=== PATIENT | male | born 1955 | race Caucasian/White ===

== ENCOUNTER 2018-01-26 20:04 | Emergency (ER) | payer OTHER ==
--- NOTE | 2018-01-27 00:01 | EDM.PDOC ---
ED HPI GENERAL MEDICAL PROBLEM - General Chief Complaint: Neuro Symptoms/Deficits Stated Complaint: DIZZY VOMITING Time Seen by Provider: 01/26/18 23:55 Source of Information: Reports: Patient, Family (), RN Notes Reviewed History Limitations: Reports: No Limitations - History of Present Illness INITIAL COMMENTS - FREE TEXT/NARRATIVE: The patient states that he developed lightheadedness about 5 minutes after he got into a hot tub around 18:00 MDT last night, 01/25/2018. He went inside and vomited, followed by dry heaves, for about 1.5 hours. He went to bed , but when he woke, he still had nausea with dry heaves. This morning, his symptoms were still present. The patient and his are vacationing from [place], [place], and the patient was in a van for about 10 hours today, driving from [place], [place]. His symptoms are made worse if he is upright. He feels okay if he is supine, but when moving in the van, he had to keep his eyes closed. He is ataxic when he walks, although denies any focal weakness. He states that he developed a bilateral frontal headache about one hour ago. No prior similar symptoms. Lower Abdominal Pain Score (Numeric/FACES): 6 - Related Data Allergies Allergy/AdvReac Type Severity Reaction Status Date / Time No Known Allergies Allergy Verified 01/26/18 21:07 Home Meds: Home Meds . [No Known Home Meds] 01/26/18 [History] Past Medical History - Past Surgical History HEENT Surgical History: Reports: Oral Surgery (wisdom teeth extraction) Social & Family History - Family History Family Medical History: Noncontributory - Tobacco Use Smoking Status *Q: Never Smoker - Alcohol Use Alcohol Use History: Yes Alcohol Use Frequency: Weekly - Recreational Drug Use Recreational Drug Use: No - Living Situation & Occupation Living situation: Reports: , with Spouse Occupation: Retired ED ROS GENERAL - Review of Systems Review Of Systems: ROS reveals no pertinent complaints other than HPI. ED EXAM, DIZZINESS - Physical Exam Exam: See Below Exam Limited By: No Limitations General Appearance: Alert, WD/WN, No Apparent Distress Eye Exam: Bilateral Eye: EOMI, Normal Inspection, PERRL Ears: Normal External Exam, Hearing Grossly Normal Nose: Normal Inspection, No Blood Throat/Mouth: Normal Inspection, Normal Lips, Normal Voice, No Airway Compromise Head Exam: Atraumatic, Normocephalic Neck: Normal Inspection, Full Range of Motion Respiratory/Chest: No Respiratory Distress, Lungs Clear, Normal Breath Sounds, No Accessory Muscle Use Cardiovascular: Normal Peripheral Pulses, Regular Rate, Rhythm, No Gallop, No JVD, No Murmur, No Rub GI/Abdominal: Normal Bowel Sounds, Soft, Non-Tender, No Organomegaly, No Distention, No Abnormal Bruit, No Mass (Male) Exam: Deferred Rectal (Males) Exam: Deferred Neurological: Alert, Normal Dorsiflexion, CN II-XII Intact, Normal Plantar Flexion, No Motor/Sensory Deficits, Oriented x 3, Other (Cerebellar exam normal) Back Exam: Normal Inspection, Full Range of Motion, NT Extremities: Normal Inspection, Normal Range of Motion, No Pedal Edema, Normal Capillary Refill Psychiatric: Normal Affect Skin Exam: Warm, Dry, Intact, Normal Color, No Rash EKG INTERPRETATION EKG Date: 01/26/18 Time: 23:44 Rhythm: NSR Rate (Beats/Min): 75 [place]: Normal P-Wave: Present QRS: Normal ST-T: Normal QT: Normal Comparison: NA - No Prior EKG Course - Vital Signs Last Recorded V/S: Last Vital Signs Temp 37.4 C 01/26/18 21:01 Pulse 68 01/26/18 21:01 Resp 16 01/26/18 21:01 BP 128/75 01/26/18 21:01 Pulse Ox 100 01/26/18 21:01 - Orders/Labs/Meds Orders: Active Orders 24 hr Category Date Time Status EKG Documentation Completion [RC] ASDIRECTED Care 01/26/18 23:39 Active Head wo Cont [CT] Stat Exams 01/26/18 23:06 Taken Sodium Chloride 0.9% [Normal Saline] 1,000 ml Med 01/27/18 01:00 Active IV ASDIRECTED EKG 12 Lead [EK] Stat Ther 01/26/18 23:38 Ordered Medication Orders Sodium Chloride (Normal Saline) 1,000 mls @ 150 mls/hr IV ASDIRECTED LOPEZ Labs: Laboratory Tests 01/26/18 01/26/18 01/26/18 Range/Units 23:25 23:25 23:25 WBC 14.30 H (4.23-9.07) K/mm3 RBC 4.74 (4.63-6.08) M/mm3 Hgb 14.4 (13.7-17.5) gm/L Hct 42.4 (40.1-51.0) % MCV 89.5 (79.0-92.2) fl MCH 30.4 (25.7-32.2) pg MCHC 34.0 (32.2-35.5) g/dl RDW Std Deviation 43.7 (35.1-43.9) fL Plt Count 248 (163-337) K/mm3 MPV 9.9 (9.4-12.3) fl Neut % (Auto) 87.8 H (34.0-67.9) % Lymph % (Auto) 6.9 L (21.8-53.1) % [place] % (Auto) 5.1 L (5.3-12.2) % Eos % (Auto) 0 L (0.8-7.0) Baso % (Auto) 0.1 (0.1-1.2) % Neut # (Auto) 12.55 H (1.78-5.38) K/mm3 Lymph # (Auto) 0.99 L (1.32-3.57) K/mm3 [place] # (Auto) 0.73 (0.30-0.82) K/mm3 Eos # (Auto) 0.00 L (0.04-0.54) K/mm3 Baso # (Auto) 0.01 (0.01-0.08) K/mm3 Manual Slide Review Normal smear Sodium 140 (136-145) mEq/L Potassium 4.1 (3.5-5.1) mEq/L Chloride 104 (98-107) mEq/L Carbon Dioxide 24 (21-32) mEq/L Anion Gap 16.1 H (5-15) BUN 18 (7-18) mg/dL Creatinine 1.0 (0.7-1.3) mg/dL Est Cr Clr Drug Dosing 71.61 mL/min Estimated GFR (MDRD) > 60 (>60) mL/min BUN/Creatinine Ratio 18.0 (14-18) Glucose 115 (80-115) mg/dL Calcium 9.2 (8.5-10.1) mg/dL Total Bilirubin 0.6 (0.2-1.0) mg/dL AST 25 (15-37) U/L ALT 27 (16-63) U/L Alkaline Phosphatase 71 (46-116) U/L Troponin I < 0.017 (0.00-0.056) ng/mL C-Reactive Protein 0.3 (<1.0) mg/dL Total Protein 7.2 (6.4-8.2) g/dl Albumin 4.0 (3.4-5.0) g/dl Globulin 3.2 gm/dL Albumin/Globulin Ratio 1.3 (1-2) Meds: Medications Generic Name Dose Route Start Last Admin Trade Name Freq PRN Reason Stop Dose Admin Sodium Chloride 1,000 mls @ 150 mls/hr 01/27/18 01:00 Normal Saline IV ASDIRECTED LOPEZ Discontinued Medications Generic Name Dose Route Start Last Admin Trade Name Freq PRN Reason Stop Dose Admin Ondansetron HCl 4 mg 01/27/18 00:46 Zofran IVPUSH 01/27/18 00:47 ONETIME ONE - Re-Assessments/Exams Free Text/Narrative Re-Assessment/Exam: 01/26/18 23:57 CT of the head without contrast is read by [facility] as: 1. Subacute infarct involving the right posterior inferior cerebellar territory 2. No evidence for hemorrhage 01/27/18 00:32 Case discussed with [facility] at 00:21. Case discussed with Dr. Sauceda, stroke Neurologist at [facility], at 00: 27. He has accepted the patient for transfer to their facility. The patient will be transported by fixed wing. CT of the head images pushed to [facility] at 00:29. Departure - Departure Time of Disposition: 00:35 Disposition: DC/Tfer to Acute Hospital 02 Condition: Fair Clinical Impression: Cerebellar stroke - Discharge Information *PRESCRIPTION DRUG MONITORING PROGRAM REVIEWED*: Not Applicable *COPY OF PRESCRIPTION DRUG MONITORING REPORT IN PATIENT DANDY: Not Applicable Referrals: PCP,Not In Area [Primary Care Provider] - Forms: ED Department Discharge - My Orders Last 24 Hours: My Active Orders 01/26/18 23:06 Head wo Cont [CT] Stat 01/26/18 23:38 EKG 12 Lead [EK] Stat 01/26/18 23:39 EKG Documentation Completion [RC] ASDIRECTED 01/27/18 01:00 Sodium Chloride 0.9% [Normal Saline] 1,000 ml IV ASDIRECTED - Assessment/Plan Last 24 Hours: My Active Orders 01/26/18 23:06 Head wo Cont [CT] Stat 01/26/18 23:38 EKG 12 Lead [EK] Stat 01/26/18 23:39 EKG Documentation Completion [RC] ASDIRECTED 01/27/18 01:00 Sodium Chloride 0.9% [Normal Saline] 1,000 ml IV ASDIRECTED
[2018-01-27] MEDS ORDERED: Ondansetron 4 MG/2 ML SDV IVPUSH ONE (00:46)
[2018-01-27] MEDS ORDERED: Sodium Chloride 0.9% 1,000 ML IV SCH (01:00)
--- NOTE | 2018-01-27 07:45 | CT ---
Head CT Technique: Multiple axial sections through the brain were obtained. Intravenous contrast was not utilized. Comparison: No prior intracranial imaging is available. Findings: Low density seen within the right cerebellar hemisphere most likely representing old infarct. Ventricles along with basal cisterns and sulci over the convexities are mildly prominent. No other abnormal parenchymal densities are seen. No evidence of intracranial hemorrhage. No midline shift or mass effect is seen. Bone window settings were reviewed which show the visualized sinuses to appear clear. No acute calvarial abnormality is seen. Impression: 1. Old appearing infarct within the inferior right cerebellar hemisphere. 2. Mild generalized atrophy. 3. No acute intracranial abnormality is identified. Diagnostic code #2 I agree with preliminary report issued by [employer] [facility] ([facility] preliminary report dictated on 01/27/18, 12:43 AM Central Time)
== END 2018-01-27 01:24 ==
LOC: JD.ED 20:04
DX: I63.9 Cerebral infarction, unspecified (principal)
CPT/HCPCS: 36415; 70450; 80053; 84484; 85025; 86140; 93005; 96374; 99285; J2405; J7040; 93010